=== PATIENT | male | born 1970 | race Caucasian/White ===

== ENCOUNTER 2022-06-19 00:29 | Emergency (ER) | payer OTHER ==
[~2022-06-19] VITALS: Wt 108.9 kg
[2022-06-19 00:51] LABS: BASO # 0.1 10*3/uL (0.0-0.1); BASO % 0.8 % (0.0-1.0); EOS # 0.3 10*3/uL (0.0-0.4); EOS % 2.9 % (1.0-4.0); HEMATOCRIT 46.5 % (42.0-52.0); LYMPH # 2.8 10*3/uL (1.3-4.4); LYMPH % 30.9 % (27.0-41.0); MEAN CELL VOLUME 87.1 fl (80.0-94.0); MEAN CORPUSCULAR HGB CONC 34.4 g/dl (33.0-37.0); MONO # 1.1 10*3/uL (0.1-1.0); MONO % 12.3 % (3.0-9.0); NEUT # 4.8 10*3/uL (2.3-7.9); NEUT % 52.9 % (47.0-73.0); PLATELET COUNT AUTOMATED 258 10*3/uL (130-400); RED BLOOD COUNT 5.34 10*6/uL (4.50-5.90); WHITE BLOOD COUNT 9.1 10*3/uL (4.8-10.8)
[2022-06-19 01:08] LABS: ALKALINE PHOSPHATASE 82 U/L (46-116); BUN 13 mg/dl (9-23); CHLORIDE 106 mmol/L (98-107); POTASSIUM 3.8 mmol/L (3.4-5.1); SGPT/ALT 23 U/L (10-49); TOTAL PROTEIN 7.1 gm/dL (6.0-8.0)
== END 2022-06-19 03:00 | disposition home or self-care (01) ==
LOC: ED 00:29
PROVIDERS: Internal Medicine
DX: R07.89 Other chest pain (principal); F41.9 Anxiety disorder, unspecified; N18.31 Chronic kidney disease, stage 3a; I10 Essential (primary) hypertension

== ENCOUNTER 2023-01-26 01:55 | Emergency (ER) | payer OTHER ==
[~2023-01-26] VITALS: Ht 193 cm; Wt 129.3 kg
[2023-01-26] MEDS ORDERED: LISINOPRIL-HCT1 EACH PO (02:14)
[2023-01-26] MEDS ORDERED: AMLODIPINE BESY10 MG PO (02:14)
[2023-01-26] MEDS ORDERED: KENALOG 0.1%80 GM T (03:04)
[2023-01-26] MEDS ORDERED: PREDNISONE20 M1 PO (03:04)
== END 2023-01-26 03:20 | disposition home or self-care (01) ==
LOC: ED 01:55
DX: L30.9 Dermatitis, unspecified (principal); I10 Essential (primary) hypertension; F41.9 Anxiety disorder, unspecified

== ENCOUNTER 2023-12-11 07:01 | Emergency (ER) | payer OTHER ==
[~2023-12-11] VITALS: Ht 193 cm; Wt 138.0 kg
[~2023-12-11 07:01] MED LIST: AMLODIPINE BESY10 MG PO; KENALOG 0.1%80 GM T; LISINOPRIL-HCT1 EACH PO; PREDNISONE20 M1 PO
[2023-12-11] MEDS ORDERED: MG-AL HYDROXIDE/SIMETICONE 30 ML UDC PO STA (07:24)
[2023-12-11] MEDS ORDERED: Dicyclomine Hydrochloride 20 MG/10 ML OSYR PO STA (07:24)
[2023-12-11] MEDS ORDERED: Lidocaine Hydrochloride 15 ML UDC PO STA (07:24)
[2023-12-11 07:44] LABS: BASO # 0.1 10*3/uL (0.0-0.1); BASO % 0.6 % (0.0-1.0); EOS # 0.3 10*3/uL (0.0-0.4); EOS % 3.2 % (1.0-4.0); HEMATOCRIT 47.9 % (42.0-52.0); LYMPH # 2.4 10*3/uL (1.3-4.4); LYMPH % 26.9 % (27.0-41.0); MEAN CELL VOLUME 84.6 fl (80.0-94.0); MEAN CORPUSCULAR HGB 28.6 pg (27.0-31.0); MEAN CORPUSCULAR HGB CONC 33.8 g/dl (33.0-37.0); MEAN PLATELET VOLUME 10.1 fl (9.6-12.3); MONO # 1.1 10*3/uL (0.1-1.0); MONO % 12.4 % (3.0-9.0); NEUT # 5.1 10*3/uL (2.3-7.9); NEUT % 56.6 % (47.0-73.0); PLATELET COUNT AUTOMATED 262 10*3/uL (130-400); RED BLOOD COUNT 5.66 10*6/uL (4.50-5.90); RED CELL DISTRI WIDTH 12.5 % (0-14.5)
[2023-12-11 08:03] LABS: BUN 14 mg/dl (9-23); CHLORIDE 104 mmol/L (98-107); POTASSIUM 3.5 mmol/L (3.4-5.1)
[2023-12-11] MEDS ORDERED: cloNIDine Hydrochloride 0.1 MG TAB PO ONE (08:45)
[2023-12-11] MEDS ORDERED: ACID REDUCER10 MG PO (08:46)
== END 2023-12-11 09:11 | disposition home or self-care (01) ==
LOC: ED 07:01
PROVIDERS: Internal Medicine
DX: K21.9 Gastro-esophageal reflux disease without esophagitis (principal); I16.0 Hypertensive urgency; Z91.199 Patient's noncompliance with other medical treatment and regimen due to unspecified reason; R11.2 Nausea with vomiting, unspecified; F41.9 Anxiety disorder, unspecified

== ENCOUNTER 2023-12-15 21:54 | Emergency (ER) | payer OTHER ==
[~2023-12-15] VITALS: Ht 193 cm; Wt 137.9 kg
[~2023-12-15 21:54] MED LIST changes: +ACID REDUCER10 MG PO
[2023-12-15] MEDS ORDERED: Dicyclomine Hydrochloride 20 MG/10 ML OSYR PO STA (22:13)
[2023-12-15] MEDS ORDERED: MG-AL HYDROXIDE/SIMETICONE 30 ML UDC PO STA (22:13)
[2023-12-15] MEDS ORDERED: Lidocaine Hydrochloride 15 ML UDC PO STA (22:13)
[2023-12-15] MEDS ORDERED: IOHEXOL 300 MG/ML 100 ML VIAL IV ONE (22:25)
[2023-12-15 22:27] LABS: BASO # 0.1 10*3/uL (0.0-0.1); BASO % 0.7 % (0.0-1.0); EOS # 0.5 10*3/uL (0.0-0.4); EOS % 5.1 % (1.0-4.0); HEMATOCRIT 45.1 % (42.0-52.0); LYMPH # 2.5 10*3/uL (1.3-4.4); LYMPH % 25.8 % (27.0-41.0); MEAN CELL VOLUME 85.4 fl (80.0-94.0); MEAN CORPUSCULAR HGB 28.8 pg (27.0-31.0); MEAN CORPUSCULAR HGB CONC 33.7 g/dl (33.0-37.0); MONO # 1.1 10*3/uL (0.1-1.0); MONO % 11.3 % (3.0-9.0); NEUT # 5.6 10*3/uL (2.3-7.9); NEUT % 56.8 % (47.0-73.0); PLATELET COUNT AUTOMATED 228 10*3/uL (130-400); RED BLOOD COUNT 5.28 10*6/uL (4.50-5.90); RED CELL DISTRI WIDTH 12.5 % (0-14.5); WHITE BLOOD COUNT 9.8 10*3/uL (4.8-10.8)
[2023-12-15] MEDS ORDERED: hydrALAZINE hydrochloride 20 MG/ML VIAL IV ONE (22:45)
[2023-12-15 22:46] LABS: POTASSIUM 3.5 mmol/L (3.4-5.1)
[2023-12-15] MEDS ORDERED: Labetalol Hydrochloride 20 MG/4 ML SYR IV ONE (23:30)
[2023-12-16] MEDS ORDERED: PROPRANOLOL HCL40 M1 PO (00:20)
[2023-12-16] MEDS ORDERED: ATARAX,VISTARIL10 MG PO (15:43)
[2023-12-17] MEDS ORDERED: PROTONIX40 MG PO (13:00)
== END 2023-12-16 00:56 | disposition left against medical advice (07) ==
LOC: ED 21:54
PROVIDERS: Internal Medicine
DX: I16.1 Hypertensive emergency (principal); Z91.199 Patient's noncompliance with other medical treatment and regimen due to unspecified reason; K21.9 Gastro-esophageal reflux disease without esophagitis; I10 Essential (primary) hypertension; F41.9 Anxiety disorder, unspecified; Z53.29 Procedure and treatment not carried out because of patient's decision for other reasons

== ENCOUNTER 2024-08-30 02:30 | Emergency (ER) | payer SELFPAY ==
[~2024-08-30] VITALS: Ht 193 cm; Wt 133.8 kg
[~2024-08-30 02:30] MED LIST changes: +ATARAX,VISTARIL10 MG PO; +PROPRANOLOL HCL40 M1 PO; +PROTONIX40 MG PO
[2024-08-30] MEDS ORDERED: Ondansetron Hydrochloride 4 MG/2 ML VIAL IV ONE (02:55)
[2024-08-30 03:11] LABS: BASO # 0.1 10*3/uL (0.0-0.1); BASO % 0.8 % (0.0-1.0); EOS # 0.3 10*3/uL (0.0-0.4); EOS % 3.3 % (1.0-4.0); MEAN CELL VOLUME 85.8 fl (80.0-94.0); MEAN CORPUSCULAR HGB 28.5 pg (27.0-31.0); MEAN PLATELET VOLUME 10.5 fl (9.6-12.3); MONO # 1.2 10*3/uL (0.1-1.0); MONO % 11.7 % (3.0-9.0); NEUT # 5.0 10*3/uL (2.3-7.9); NEUT % 50.7 % (47.0-73.0); NUCLEATED RED BLOOD CELL 0.0 % (0.0-0.0); NUCLEATED RED BLOOD CELL 0.0 10*3/uL (0.0-0.0); PLATELET COUNT AUTOMATED 247 10*3/uL (130-400); RED CELL DISTRI WIDTH 13.0 % (0-14.5)
[2024-08-30 03:34] LABS: BUN 22 mg/dl (9-23); CPK 107 U/L (34-171); SGPT/ALT 17 U/L (5-49)
== END 2024-08-30 05:47 | disposition home or self-care (01) ==
LOC: ED 02:30
PROVIDERS: Emergency Medicine
DX: R20.2 Paresthesia of skin (principal); F41.9 Anxiety disorder, unspecified; I49.3 Ventricular premature depolarization; R42 Dizziness and giddiness; R06.02 Shortness of breath; R20.0 Anesthesia of skin; Z79.899 Other long term (current) drug therapy

== ENCOUNTER 2024-09-07 22:55 | Emergency (ER) | payer SELFPAY ==
[~2024-09-07] VITALS: Wt 139.3 kg
[2024-09-07] MEDS ORDERED: LORazepam 1 MG TAB PO ONE (23:20)
[2024-09-07 23:31] LABS: BASO # 0.1 10*3/uL (0.0-0.1); BASO % 0.7 % (0.0-1.0); EOS # 0.3 10*3/uL (0.0-0.4); EOS % 3.2 % (1.0-4.0); MEAN CELL VOLUME 84.3 fl (80.0-94.0); MEAN CORPUSCULAR HGB 29.0 pg (27.0-31.0); MEAN PLATELET VOLUME 10.1 fl (9.6-12.3); MONO # 1.1 10*3/uL (0.1-1.0); MONO % 12.1 % (3.0-9.0); NEUT # 5.1 10*3/uL (2.3-7.9); NEUT % 56.7 % (47.0-73.0); NUCLEATED RED BLOOD CELL 0.0 % (0.0-0.0); NUCLEATED RED BLOOD CELL 0.0 10*3/uL (0.0-0.0); PLATELET COUNT AUTOMATED 213 10*3/uL (130-400); RED CELL DISTRI WIDTH 13.0 % (0-14.5)
[2024-09-07 23:55] LABS: BUN 17 mg/dl (9-23); CPK 536 U/L (34-171); SGPT/ALT 21 U/L (5-49)
[2024-09-08] MEDS ORDERED: SODIUM CHLORIDE 0.9% 500 ML IV ONE (01:00)
[2024-09-08] MEDS ORDERED: ATIVAN1 MG PO (01:52)
[2024-09-08] MEDS ORDERED: METOPROLOL SUCCINATE XR 25 MG TAB PO ONE (01:55)
== END 2024-09-08 02:12 | disposition home or self-care (01) ==
LOC: ED 22:55
PROVIDERS: Emergency Medicine
DX: I49.3 Ventricular premature depolarization (principal); F41.9 Anxiety disorder, unspecified; I10 Essential (primary) hypertension; K21.9 Gastro-esophageal reflux disease without esophagitis; Z79.899 Other long term (current) drug therapy

== ENCOUNTER 2024-10-14 01:39 | Emergency (ER) | payer SELFPAY ==
[~2024-10-14] VITALS: Ht 193 cm; Wt 133.8 kg
[~2024-10-14 01:39] MED LIST changes: +ATIVAN1 MG PO
[2024-10-14] MEDS ORDERED: LORazepam 1 MG TAB PO ONE (01:55)
[2024-10-14 02:03] LABS: BASO # 0.1 10*3/uL (0.0-0.1); BASO % 0.9 % (0.0-1.0); EOS # 0.3 10*3/uL (0.0-0.4); EOS % 3.0 % (1.0-4.0); MEAN CELL VOLUME 85.2 fl (80.0-94.0); MEAN CORPUSCULAR HGB 28.8 pg (27.0-31.0); MEAN PLATELET VOLUME 9.5 fl (9.6-12.3); MONO # 1.2 10*3/uL (0.1-1.0); MONO % 11.3 % (3.0-9.0); NEUT # 5.3 10*3/uL (2.3-7.9); NEUT % 51.8 % (47.0-73.0); NUCLEATED RED BLOOD CELL 0.0 % (0.0-0.0); NUCLEATED RED BLOOD CELL 0.0 10*3/uL (0.0-0.0); PLATELET COUNT AUTOMATED 282 10*3/uL (130-400); RED CELL DISTRI WIDTH 12.9 % (0-14.5)
[2024-10-14 02:27] LABS: BUN 18 mg/dl (9-23)
== END 2024-10-14 02:37 | disposition home or self-care (01) ==
LOC: ED 01:39
PROVIDERS: Nurse Practitioner Family
DX: F41.9 Anxiety disorder, unspecified (principal); I10 Essential (primary) hypertension; K21.9 Gastro-esophageal reflux disease without esophagitis

== ENCOUNTER 2024-11-15 02:07 | Emergency (ER) | payer SELFPAY ==
[~2024-11-15] VITALS: Ht 193 cm; Wt 131.1 kg
[2024-11-15] MEDS ORDERED: Labetalol Hydrochloride 20 MG/4 ML SYR IV ONE ×3 (02:45→03:55)
[2024-11-15 02:53] LABS: BASO # 0.1 10*3/uL (0.0-0.1); BASO % 0.7 % (0.0-1.0); EOS # 0.4 10*3/uL (0.0-0.4); EOS % 3.8 % (1.0-4.0); MEAN CELL VOLUME 84.8 fl (80.0-94.0); MEAN CORPUSCULAR HGB 28.6 pg (27.0-31.0); MEAN PLATELET VOLUME 9.5 fl (9.6-12.3); MONO # 1.4 10*3/uL (0.1-1.0); MONO % 12.2 % (3.0-9.0); NEUT # 6.0 10*3/uL (2.3-7.9); NEUT % 52.1 % (47.0-73.0); NUCLEATED RED BLOOD CELL 0.0 % (0.0-0.0); NUCLEATED RED BLOOD CELL 0.0 10*3/uL (0.0-0.0); PLATELET COUNT AUTOMATED 277 10*3/uL (130-400); RED CELL DISTRI WIDTH 12.6 % (0-14.5)
[2024-11-15] MEDS ORDERED: LORazepam 1 MG TAB PO ONE (02:55)
[2024-11-15 03:13] LABS: BUN 16 mg/dl (9-23)
[2024-11-15] MEDS ORDERED: LISINOPRIL-HCT1 EACH PO (05:04)
[2024-11-15] MEDS ORDERED: PROPRANOLOL HCL40 MG PO (05:04)
[2024-11-15] MEDS ORDERED: AMLODIPINE BESY10 MG PO (05:04)
== END 2024-11-15 04:59 | disposition home or self-care (01) ==
LOC: ED 02:07
PROVIDERS: Emergency Medicine
DX: I10 Essential (primary) hypertension (principal); F41.9 Anxiety disorder, unspecified; K21.9 Gastro-esophageal reflux disease without esophagitis; Z79.899 Other long term (current) drug therapy; Z91.199 Patient's noncompliance with other medical treatment and regimen due to unspecified reason

== ENCOUNTER 2024-11-29 18:45 | Emergency (ER) | payer SELFPAY ==
[~2024-11-29] VITALS: Ht 193 cm; Wt 127.0 kg
[~2024-11-29 18:45] MED LIST changes: +PROPRANOLOL HCL40 MG PO
[2024-11-29 19:29] LABS: BASO # 0.1 10*3/uL (0.0-0.1); BASO % 0.7 % (0.0-1.0); EOS # 0.2 10*3/uL (0.0-0.4); EOS % 1.4 % (1.0-4.0); MEAN CELL VOLUME 85.5 fl (80.0-94.0); MEAN CORPUSCULAR HGB 28.7 pg (27.0-31.0); MEAN PLATELET VOLUME 10.1 fl (9.6-12.3); MONO # 1.4 10*3/uL (0.1-1.0); MONO % 11.7 % (3.0-9.0); NEUT # 7.6 10*3/uL (2.3-7.9); NEUT % 61.8 % (47.0-73.0); NUCLEATED RED BLOOD CELL 0.0 % (0.0-0.0); NUCLEATED RED BLOOD CELL 0.0 10*3/uL (0.0-0.0); PLATELET COUNT AUTOMATED 312 10*3/uL (130-400); RED CELL DISTRI WIDTH 12.5 % (0-14.5)
[2024-11-29 19:50] LABS: BUN 24.0 mg/dl (9-23); SGPT/ALT 17.0 U/L (5-49)
[2024-11-29] MEDS ORDERED: LORazepam 1 MG TAB PO ONE (21:20)
[2024-11-29] MEDS ORDERED: PROPRANOLOL HCL40 M1 PO (23:18)
[2024-11-29] MEDS ORDERED: ZESTORETIC 20-1 EAC1 PO (23:18)
== END 2024-11-29 23:19 | disposition home or self-care (01) ==
LOC: ED 18:45
PROVIDERS: Emergency Medicine
DX: F41.9 Anxiety disorder, unspecified (principal); N17.9 Acute kidney failure, unspecified; R07.89 Other chest pain; I10 Essential (primary) hypertension; Z79.899 Other long term (current) drug therapy; Z53.29 Procedure and treatment not carried out because of patient's decision for other reasons; Z91.148 Patient's other noncompliance with medication regimen for other reason

== ENCOUNTER 2025-01-14 03:45 | Emergency (ER) | payer SELFPAY ==
[~2025-01-14] VITALS: Ht 193 cm; Wt 131.1 kg
[~2025-01-14 03:45] MED LIST changes: +ZESTORETIC 20-1 EAC1 PO
[2025-01-14] MEDS ORDERED: LORazepam 1 MG TAB PO ONE (04:15)
== END 2025-01-14 05:50 | disposition left against medical advice (07) ==
LOC: ED 03:45
DX: I16.0 Hypertensive urgency (principal); R42 Dizziness and giddiness; Z79.899 Other long term (current) drug therapy; Z53.29 Procedure and treatment not carried out because of patient's decision for other reasons; Z91.148 Patient's other noncompliance with medication regimen for other reason

== ENCOUNTER 2025-01-20 09:38 | Emergency (ER) | payer SELFPAY ==
[~2025-01-20] VITALS: Ht 193 cm; Wt 136.1 kg
[2025-01-20] MEDS ORDERED: ACETAMINOPHEN 325 MG TAB PO ONE (09:55)
[2025-01-20 10:17] LABS: BASO # 0.1 10*3/uL (0.0-0.1); BASO % 0.9 % (0.0-1.0); EOS # 0.4 10*3/uL (0.0-0.4); EOS % 3.9 % (1.0-4.0); MEAN CELL VOLUME 84.1 fl (80.0-94.0); MEAN CORPUSCULAR HGB 29.1 pg (27.0-31.0); MEAN PLATELET VOLUME 9.9 fl (9.6-12.3); MONO # 1.1 10*3/uL (0.1-1.0); MONO % 10.7 % (3.0-9.0); NEUT # 5.4 10*3/uL (2.3-7.9); NEUT % 53.3 % (47.0-73.0); NUCLEATED RED BLOOD CELL 0.0 % (0.0-0.0); NUCLEATED RED BLOOD CELL 0.0 10*3/uL (0.0-0.0); PLATELET COUNT AUTOMATED 270 10*3/uL (130-400); RED CELL DISTRI WIDTH 12.6 % (0-14.5)
[2025-01-20] MEDS ORDERED: SODIUM CHLORIDE 0.9% 100 ML BAG IV ONE (10:20)
[2025-01-20] MEDS ORDERED: HYDROmorphONE Hydrochloride 0.5 MG/0.5 ML SYRINGE IV ONE (10:20)
[2025-01-20] MEDS ORDERED: IOHEXOL 350 MG/ML 100 ML VIAL IV ONE ×2 (10:20→10:45)
[2025-01-20 10:39] LABS: BUN 18.0 mg/dl (9-23); SGPT/ALT 14.0 U/L (5-49)
[2025-01-20] MEDS ORDERED: SODIUM CHLORIDE 0.9% 100 ML IV ONE (10:44)
[2025-01-20 10:49] LABS: CLARITY Clear (Clear); COLOR Yellow (Yellow)
[2025-01-20 10:50] LABS: BILIRUBIN Negative (Negative); KETONE Negative (Negative); PH 6.5 (4.5-8.0); SPECIFIC GRAVITY 1.015 (1.001-1.030)
[2025-01-20 10:51] LABS: UROBILINOGEN 0.2 E.U./dl (0.0-1.0)
[2025-01-20 10:52] LABS: LEUKO ESTERASE Negative (Negative); NITRITE Negative (Negative)
[2025-01-20 10:57] LABS: BLOOD 2+ (Negative)
[2025-01-20 10:58] LABS: BACTERIA 1+; MUCOUS 1+; RBC TNTC rbc/hpf (0-2)
[2025-01-20 11:10] LABS: ACT PARTIAL THROMBO TIME 25.2 SECONDS (20.0-32.1)
[2025-01-20 14:24] LABS: URINE AMPHETAMINES Negative (1000ng/ml); URINE BARBITURATES Negative (200ng/ml); URINE BENZODIAZEPINES Negative (200ng/ml); URINE CANNABINOIDS (THC) Negative (50ng/ml); URINE COCAINE Negative (300ng/ml); URINE METHADONE Negative (300ng/ml); URINE OPIATES Negative (300ng/ml); URINE PHENCYCLIDINE Negative (25ng/ml)
== END 2025-01-20 14:41 | disposition short-term general hospital (02) ==
LOC: ED 09:38
PROVIDERS: Emergency Medicine
DX: I71.02 Dissection of abdominal aorta (principal); I74.10 Embolism and thrombosis of unspecified parts of aorta; K80.20 Calculus of gallbladder without cholecystitis without obstruction; I10 Essential (primary) hypertension; F17.200 Nicotine dependence, unspecified, uncomplicated; Z79.899 Other long term (current) drug therapy

== ENCOUNTER 2025-01-23 17:17 | Emergency (ER) | payer SELFPAY ==
[~2025-01-23] VITALS: Ht 193 cm; Wt 131.5 kg
[2025-01-23] MEDS ORDERED: LISINOPRIL 20 MG TAB PO ONE (17:35)
[2025-01-23] MEDS ORDERED: METOPROLOL SUCCINATE XR 50 MG TAB PO ONE (17:35)
[2025-01-23] MEDS ORDERED: LISINOPRIL20 MG PO (17:37)
[2025-01-23] MEDS ORDERED: Lopressor25 MG PO (17:37)
== END 2025-01-23 18:37 | disposition home or self-care (01) ==
LOC: ED 17:17
DX: I10 Essential (primary) hypertension (principal); Z76.0 Encounter for issue of repeat prescription; G89.29 Other chronic pain; M54.9 Dorsalgia, unspecified; Z79.899 Other long term (current) drug therapy

== ENCOUNTER 2025-01-24 23:49 | Emergency (ER) | payer SELFPAY ==
[~2025-01-24] VITALS: Ht 187.9 cm; Wt 108.9 kg
[~2025-01-24 23:49] MED LIST changes: +LISINOPRIL20 MG PO; +Lopressor25 MG PO
[2025-01-25] MEDS ORDERED: LISINOPRIL 10 MG TAB PO ONE (00:30)
[2025-01-25] MEDS ORDERED: METOPROLOL25 MG PO (00:35)
[2025-01-25] MEDS ORDERED: ZESTRIL10 MG PO (00:35)
== END 2025-01-25 01:29 | disposition home or self-care (01) ==
LOC: ED 23:49
DX: I10 Essential (primary) hypertension (principal)

== ENCOUNTER 2025-02-14 01:11 | Emergency (ER) | payer SELFPAY ==
[~2025-02-14] VITALS: Ht 193 cm; Wt 127.0 kg
[~2025-02-14 01:11] MED LIST changes: +METOPROLOL25 MG PO; +ZESTRIL10 MG PO
[2025-02-14] MEDS ORDERED: LORazepam 1 MG TAB PO ONE (01:55)
== END 2025-02-14 03:02 | disposition home or self-care (01) ==
LOC: ED 01:11
DX: F41.9 Anxiety disorder, unspecified (principal); I10 Essential (primary) hypertension; K21.9 Gastro-esophageal reflux disease without esophagitis